=== PATIENT | male | born 1995 | race African-American/Black ===

== ENCOUNTER 2017-12-20 09:03 | Emergency (ER) | payer OTHER ==
[2017-12-20] MEDS ORDERED: Aspirin 81 mg CHEW TAB* 81 MG TAB.CHEW PO ONE (09:59)
--- NOTE | 2017-12-20 10:30 | ED ---
HPI Chest Pain - HPI Summary HPI Summary: This patient is a 22 year old M [facility] by his mother with a chief complaint of constant, sharp, tense 3/10 CP for several months. Pt notes the sx could be worse today and in general because he is anxious about the sx and always aware of and acknowledging them. He notes the pain is wherever (his) heart is. He endorses possible palpitations, possibly secondary to anxiety. Pt denies aggravating factors. He endorses using his rescue inhaler (PMHx asthma) much more than usual. Pt endorses marijuana use, occasional alcohol use. He denies SOB, FHx of PE, DVT, and early-onset CAD. - History of Current Complaint Chief Complaint: EDChestPainROMI Time Seen by Provider: 12/20/17 10:21 Hx Obtained From: Patient Onset/Duration: Started Weeks Ago, Atraumatic, Still Present Timing: Constant Initial Severity: Mild Current Severity: Mild Pain Intensity: 3 Pain Scale Used: 0-10 Numeric Chest Pain Location: Discrete at: - "wherever my heart is" Chest Pain Radiates: No Character: Sharp/Stabbing, Skipped Beats Aggravating Factor(s): Other: - anxiety Alleviating Factor(s): Nothing Associated Signs and Symptoms: Positive: Chest Pain, Anxiety. Negative: Shortness of Breath, Fever - Allergy/Home Medications Allergies/Adverse Reactions: Allergies Allergy/AdvReac Type Severity Reaction Status Date / Time apple Allergy Itching Verified 12/20/17 09:35 fuentes Allergy Itching Verified 12/20/17 09:35 Latex, Natural Rubber Allergy Rash Verified 12/20/17 09:35 peach Allergy Itching Verified 12/20/17 09:35 peanut Allergy Anaphylatic Verified 12/20/17 09:35 Shock shellfish derived Allergy Itching Verified 12/20/17 09:35 soybean Allergy Itching Verified 12/20/17 09:35 Tree Nuts Allergy Anaphylatic Verified 12/20/17 09:35 Shock Home Medications: Home Medications Beclomethasone 40 MCG MDI(NF) [Qvar 40 MCG MDI(NF)] 2 puff INH BID 12/20/17 [ History Confirmed 12/20/17] PMH/Surg Hx/FS Hx/Imm Hx Endocrine/Hematology History: Denies: Hx Diabetes, Hx Thyroid Disease Cardiovascular History: Denies: Hx Hypertension, Hx Peripheral Vascular Disease Respiratory History: Reports: Hx Asthma Denies: Hx Chronic Obstructive Pulmonary Disease (COPD) GI History: Denies: Hx Ulcer Musculoskeletal History: Denies: Hx Arthritis, Hx Osteoporosis Sensory History: Denies: Hx Cataracts, Hx Contacts or Glasses, Hx Glaucoma, Hx Deafness Opthamlomology History: Denies: Hx Cataracts, Hx Contacts or Glasses, Hx Glaucoma EENT History: Denies: Hx Deafness Neurological History: Reports: Hx Headaches - frequent headaches Denies: Hx Seizures, Hx Transient Ischemic Attacks (TIA) Psychiatric History: Denies: Hx Anxiety, Hx Depression - Surgical History Surgery Procedure, Year, and Place: 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 Infectious Disease History: No Infectious Disease History: Denies: Hx Hepatitis, Hx Human Immunodeficiency Virus (HIV), Traveled Outside the [place] in Last 30 Days - Family History Known Family History: Negative: Cardiac Disease, Other - DVT, PE - Social History Occupation: Employed Part-time Lives: With Family Alcohol Use: None Substance Use Type: Reports: None Hx Tobacco Use: No Smoking Status (MU): Light Every Day Tobacco Smoker Review of Systems Negative: Fever Positive: Palpitations, Chest Pain Negative: Shortness Of Breath Positive: no symptoms reported Positive: Anxious All Other Systems Reviewed And Are Negative: Yes Physical Exam - Summary Physical Exam Summary: GENERAL: Patient is a well-developed and nourished M who is lying comfortable in the stretcher. Patient is not in any acute respiratory distress. HEAD AND FACE: Normocephalic EYES: PERRLA, EOMI x 2. EARS: Hearing grossly intact. MOUTH: Oropharynx within normal limits. NECK: Supple, trachea is midline, no adenopathy, no JVD, no carotid bruit. CHEST: Symmetric, no tenderness at palpation LUNGS: Clear to auscultation bilaterally. No wheezing or crackles. CVS: Regular rate and rhythm, S1 and S2 present, no murmurs or gallops appreciated. ABDOMEN: Soft, non-tender. Bowel sounds are normal. No abdominal abnormal pulsations. EXTREMITIES: Full ROM in all major joints, no edema, no cyanosis or clubbing. NEURO: Alert and oriented x 3. No acute neurological deficits. Speech is normal and follows commands. SKIN: Dry and warm Triage Information Reviewed: Yes Vital Signs On Initial Exam: Initial Vitals Temp Pulse Resp BP Pulse Ox 98.0 F 65 14 125/63 98 12/20/17 09:29 12/20/17 09:29 12/20/17 09:29 12/20/17 09:29 12/20/17 09:29 Vital Signs Reviewed: Yes Diagnostics - Vital Signs Vital Signs Temp Pulse Resp BP Pulse Ox 12/20/17 09:29 98.0 F 65 14 125/63 98 - Laboratory Result Diagrams: 12/20/17 11:03 12/20/17 11:03 Lab Statement: Any lab studies that have been ordered have been reviewed, and results considered in the medical decision making process. - Radiology CXR Xray Interpretation: No Acute Changes Radiology Interpretation Completed By: Radiologist - No radiographic evidence for acute cardiopulmonary abnormality on this portable chest x-ray. Dr. Soria has reviewed this report. - EKG 0957 Cardiac Rate: NL - 68 EKG Rhythm: Sinus Rhythm Ectopy: None EKG Interpretation: minimal ST elevation V2, V3, most likely secondary to TANESHA EKG Comparison: No Significant Change - when compared to EKG on 11/21/16. Chest Pain Course/Dx - Course Course Of Treatment: A 22-year-old M presents to the ED with a CC of constant 3/ 10 CP for months. (+) sharp, "tense" chest pain, located "wherever my heart is. " He endorses anxiety and palpitations. (-) SOB more than baseline. PMHx asthma. He believes these sx could be secondary to anxiety about the sx, but as sx have been constant for so long, his concern is growing. A CXR is (-). An EKG reveals NSR 68, minimal ST elevation V2, V3, most likely secondary to TANESHA, similar to EKG from 11/21/16. In the ED course, pt was given ASA. Pt shows abnl mono%. 2 sets of troponin normal as well as d dimer. Results discussed with patient, he will follow up with cardiology. Return precaustions given - Diagnoses Provider Diagnoses: Chest pain Discharge - Sign-Out/Discharge Documenting (check all that apply): Patient Departure - discharge - Discharge Plan Condition: Stable Disposition: HOME Patient Education Materials: Chest Pain (ED) Referrals: Aisha Sanchez MD [Medical Doctor] - Additional Instructions: Please return to the emergency department for any new or worsening symptoms. Follow up with the jewelry designer (information provided) in 1-3 days. - Billing Disposition and Condition Condition: STABLE Disposition: Home - Attestation Statements Document Initiated by Rhea: Yes Documenting Scribe: Srinivas Soliman Provider For Whom Rhea is Documenting (Include Credential): Dr. Delvin Soria MD Scribe Attestation: ISrinivas, scribed for Dr. Delvin Soria MD on 12/23/17 at 0718. Scribe Documentation Reviewed: Yes Provider Attestation: The documentation as recorded by the Srinivas weaver accurately reflects the service I personally performed and the decisions made by me, Dr. Delvin Soria MD
--- NOTE | 2017-12-20 11:17 | RAD ---
INDICATION: Chest pain. COMPARISON: Most recent comparison chest x-rays dated January 04, 2017 TECHNIQUE: Single AP portable view of the chest was obtained. FINDINGS: Image quality is compromised due to the relative inferiority of a portable chest x-ray. The heart and mediastinum exhibit normal size and contour. The lungs are grossly clear. There is no evidence of a large pleural effusion. Visualized bones are normal for the patient's age. IMPRESSION: No radiographic evidence for acute cardiopulmonary abnormality on this portable chest x-ray.
[2017-12-20 11:28] LABS: INR 1.06 (0.77-1.02)
[2017-12-20 11:46] LABS: ABS Basophils 0.1 10^3/ul (0-0.2); ABS Eosinophils 0.3 10^3/ul (0-0.6); ABS Lymphocytes 1.7 10^3/ul (1.0-4.8); ABS Monocytes 0.5 10^3/ul (0-0.8); ABS Neutrophils 2.8 10^3/ul (1.5-7.7); ABS Nucleated RBC 0 10^3/ul; Eosinophil % 5.5 % (0-6); Hematocrit 44 % (42-52); Hemoglobin 15.3 g/dl (14.0-18.0); Lymphocyte % 31.5 % (25-47); Mean Corpuscular HGB Conc 35 g/dl (31-36); Mean Corpuscular Hemoglobin 32 pg (27-31); Mean Corpuscular Volume 90 fL (80-94); Mean Platelet Volume 7.8 um3 (7.4-10.4); Nucleated Red Blood Cells % 0.2; Platelet Count 235 10^3/ul (150-450); Red Blood Count 4.84 10^6/ul (4.00-5.40); Red Cell Distribution Width 13 % (10.5-15); White Blood Count 5.4 10^3/ul (3.5-10.8)
[2017-12-20 12:01] LABS: EGFR Non-African American 128.8 (>60)
[2017-12-20 12:03] LABS: Urine Appearance Clear; Urine Blood Negative (Negative); Urine Color Yellow; Urine Ketones Negative (Negative); Urine Protein Negative (Negative); Urine Urobilinogen Negative (Negative)
[2017-12-20 14:15] VITALS: BP 109/68
== END 2017-12-20 14:14 | disposition home or self-care (01) ==
LOC: ED 09:03
DX: R07.9 Chest pain, unspecified (principal); F41.9 Anxiety disorder, unspecified; R00.2 Palpitations; F17.210 Nicotine dependence, cigarettes, uncomplicated
CPT/HCPCS: 36415; 71045; 80053; 80307; 81003; 82550; 82553; 83605; 83735; 84436; 84443; 84484; 85025; 85379; 85610; 85730; 93005; 99282; A9270-GY

== ENCOUNTER 2019-06-11 14:38 | Emergency (ER) | payer OTHER ==
--- OUTSIDE RECORDS SUMMARY | 2019-06-11 14:47 | XMS REPORT | Continuity of Care Document ---
:1995 External Reference #:[id number] Author Name VICENTE Gould Address [address] [place] [address] Care Team Providers Name Role Phone Manuel Cabrera MD - Family Care Team Information [employer] Guid[employer] Counselor Medicine Problems Description No Information Available Social History Type Date Description Comments Sex Unknown Allergies, Adverse Reactions, Alerts Description No Known Drug Allergies Medications Active Medications SIG Qnty Indications Ordering Provider Date Bupropion HCL take 2 tablets 180tabs F34.1 Vijaya Rojo, 04/18/2019 75mg by mouth every LIVESTOCK PRODUCER Tablets day Lorazepam 1 by mouth twice 60tabs R11.2 Vijaya Rojo, 04/18/2019 0.5mg a day as needed [employer]ODUCER Tablets anxiety, nausea Proair HFA 2 puffs every 17gm Vijaya Rojo, 11/14/2018 4-6 hours as LIVESTOCK PRODUCER 108(90Base) mcg/Act needed Aerosol Immunizations Description No Information Available Vital Signs Date Vital Result Comment 04/18/2019 1:28pm BP Systolic 110 mmHg BP Diastolic 70 mmHg Heart Rate 98 /min Body Temperature 97.9 F Respiratory Rate 18 /min Weight 146.00 lb 11/14/2018 9:38am BP Systolic 108 mmHg BP Diastolic 58 mmHg Heart Rate 72 /min Body Temperature 98.1 F Respiratory Rate 16 /min Height 71 inches 5'11" Weight 153.00 lb BMI (Body Mass Index) 21.3 kg/m2 Results Test Acquired Date Facility Test Result H/L Range Note Ua - Micro (Fma) 04/18/2019 [facility] Appearance CLEAR (607)- - Color YELLOW Glucose, Urine (Fma/CMC/CTX) NEG Bilirubin NEG Ketones 40MG/DL SP Grav >=1.030 Blood SMALL PH 5.5 Protein NEG Urobil 0.2 Nitrite NEG Leukocytes (Fma/CMC/Centrex) NEG Hyaline - /Lpf Granular - /Lpf WBC (a,Centrex) 0-1 RBC 3-5 Mucus (Fma/CBC/Centrex) SM AMT /Lpf Epith - /Lpf Bacteria 1+ /Hpf Amorphous (Fma/CMC/Centrex) - /Lpf Crystals, Fluid (Fma/CMC/CTX) - Z#Comments <pending> CBC Manual Diff[facility] 04/18/2019 [facility] WBC 4.86 4.0-10.0 (607)- - RBC 5.17 3.93-6.0 Hemoglobin (Fma/CMC/CTX) 16.6 g/dL 12.0-17.0 Hematocrit (Fma/CMC/CTX) 45.2 % 35.0-50.0 Mean Corpuscular Vol 87.4 fL 80-95 Mean Corpuscular Hemoglobin 32.1 pg 25.6-32.2 Mean Corpuscular Hemo Concen 36.7 g/dL High 32.2-36.0 Platelets 154 10^3/ul Low 163-400 RDW 11.8 11.6-13.7 Mean Platelet Volume 10.2 fL 8.0-12.4 Neutrophil % <pending> % 34.0-70.0 Band Neutrophil <pending> % 1-7 Lymph% <pending> % 20.0-52.0 Monocytes % <pending> % 5.0-12.0 Eos % <pending> % 0.7-7.0 Basophil% <pending> % 0-1.2 Atypical Lymph <pending> Metamyelocytes <pending> Myelocytes <pending> Promyelocytes <pending> Blasts <pending> NRBC <pending> % 0-0.1 Macrocytosis <pending> Microcytosis (a/CMC/Centrex) <pending> Hypochrom <pending> Polychrom <pending> Anisocytosis (Fma/CMC/Centrex) <pending> Ovalocytes <pending> Elliptocyte <pending> Comment <pending> Laboratory test 04/18/2019 Rom[facility]) Free T4 <pending> 0.75- 1.54 finding TSH <pending> 0.5-5.0 Comprehensive Metabolic 11/14/2018 Rom[facility]) Sodium 137 mEq/L 134-149 Prof Potassium 4.3 mEq/L 3.6-5.5 Chloride 99 mEq/L 94-112 Carbon Dioxide 30 mEq/L 21-32 Glucose 100 mg/dL 70-105 BUN 10 mg/dL 6-26 Creatinine 0.7 mg/dL 0.6-1.4 BUN/Creat Ratio 14.3 CALC 8.0-36.0 Calcium 9.8 mg/dL 8.6-10.2 Total Protein 8.0 g/dL 6.4-8.3 Albumin 5.5 g/dL 3.8-5.5 Globulin 2.5 g/dL 2.0-4.8 A/G Ratio 2.2 CALC 0.6-2.3 Alk. Phosphatase 55 U/L 22-95 Alt (SGPT) 21 U/L 7-35 Ast (Sgot) 18 U/L 5-34 Total Bilirubin 1.2 mg/dL 0.2-1.3 GFR Non- >60 ml/min/1.73m^ >=60 GFR >60 ml/min/1.73m^ >=60 Laboratory test 11/14/2018 Rom[facility] Gary([facility]) Free T4 1.43 ng/dL 0.75- 1.54 finding TSH 2.12 mIU/L 0.50-6.00 CBC Electronic a 11/14/2018 Rom[facility]) WBC 6.1 x10^3/UL 4.0- 10.0 RBC 4.98 x10^6/UL 3.93-6.00 HGB 16.1 g/dL 12.0-17.0 HCT 46 % 35-50 MCV 91.6 fL 80.0-95.0 MCH 32.3 pg High 25.6-32.2 MCHC 35.3 g/dL 32.2-36.0 RDW-CV 12.7 % 11.6-14.4 PLT 268 x10^3/UL 163-400 MPV 10.0 fL 9.4-12.4 Juwan# 3.14 x10^3/UL 1.56-6.13 Lymph# 1.96 x10^3/UL 1.18-3.74 [place]# 0.69 x10^3/UL 0.24-0.82 Eos # 0.3 x10^3/UL 0.0-0.5 Baso # 0.03 x10^3/UL 0.01-0.08 Juwan% 51.3 % 34.0-70.0 Lymph % 32.0 % 20.0-52.0 [place]% 11.3 % 5.0-12.0 Eos% 4.9 % 0.7-7.0 Baso% 0.5 % 0.1-1.2 Procedures Date Code Description Status 11/14/2018 46043 Brief Emotional/Behav Assessment W/ Scoring Doc Per Completed Standard Inst Medical Devices Description No Information Available Encounters Type Date Location Provider Dx Diagnosis Office Visit 11/14/2018 Main Office Vijaya Rojo, F41.9 Anxiety disorder, 10:00a [facility] unspecified R63.4 Abnormal weight loss R10.84 Generalized abdominal pain F32.9 Major depressive disorder, single episode, unspecified Assessments Date Code Description Provider 04/18/2019 R63.4 Abnormal weight loss Vijaya Alia, [facility] 04/18/2019 R11.2 Nausea with vomiting, unspecified Vijaya Alia, [facility] 04/18/2019 R07.89 Other chest pain Vijaya Alia, [facility] 04/18/2019 R05 Cough Vijaya Alia, [facility] 04/18/2019 F34.1 Dysthymic disorder Vijaya Alia, [facility] 04/18/2019 F41.9 Anxiety disorder, unspecified Vijaya Alia, [facility] 11/14/2018 F41.9 Anxiety disorder, unspecified Vijaya Alia, [facility] 11/14/2018 R63.4 Abnormal weight loss Vijaya Alia, [facility] 11/14/2018 R10.84 Generalized abdominal pain Vijaya Alia, [facility] 11/14/2018 F32.9 Major depressive disorder, single episode, Vijayaeri Rojo, [facility] unspecified Plan of Treatment Future Appointment(s):05/03/2019 3:00 pm - VICENTE Gould at Main Utzcwx9804/18/2019 - Vijaya Rojo FNPR63.4 Abnormal weight lossR11.2 Nausea with vomiting, unspecifiedNew Medication:Lorazepam 0.5 mg - 1 by mouth twice a day as needed anxiety, nauseaComments:bland foods: mashed potato, bread, crackers, rice, banana, applesauce-- cold foods less likely to trigger lveokjF96.89 Other chest painR05 TbokzK98.1 Dysthymic disorderNew Medication: Bupropion HCL 75 mg - take 2 tablets by mouth every dayComments:Start with 75 mg (one pill) daily buproprion (generic for Wellbutrin-XL )I expect side effects , theyshould be mild/self-limiting, AND go away after a few weeks I want to see you in a few weeks, I planto keep a tight / short tether on you until we see improvement in your overall condition Any symptoms which worry you, call aofgapmwjgvX49.9 Anxiety disorder, unspecifiedAllComments:Medication Management Patient Understands medications he 's taking? Yes No Are there Barriers to Adherence? Yes No Has the patient been asked about herbal supplements and therapies, and[facility]? Yes No As always, we strongly encourage a healthy diet and making physical activity a part of your every day life. If you have questions about how or where to start, please contact the office. Functional Status Description No Information Available Mental Status Description No Information Available Referrals Description No Information Available
--- OUTSIDE RECORDS SUMMARY | 2019-06-11 14:47 | XMS REPORT | Continuity of Care Document ---
:1995 External Reference #:[id number] Author Name VICENTE Gould Address [address] [place] [address] Care Team Providers Name Role Phone Manuel Cabrera MD - Family Care Team Information Electrical Products Sales Engineer Medicine Problems Description No Information Available Social History Type Date Description Comments Sex Unknown Allergies, Adverse Reactions, Alerts Active Allergies Reaction Severity Comments Date NKDA 11/14/2018 Latex Itching 05/03/2019 Medications Active Medications SIG Qnty Indications Ordering Provider Date Bupropion HCL take 2 tablets 180tabs F34.1 Vijaya Rojo, 04/18/2019 75mg by mouth every [employer]OTOENGRAVING SK[employer] MAKER Tablets day Lorazepam 1 by mouth twice 60tabs R11.2 Vijaya Rojo, 04/18/2019 0.5mg a day as needed [employer]ENG[employer]ER Tablets anxiety, nausea Proair HFA 2 puffs every 17gm Vijaya Rojo, 11/14/2018 4-6 hours as PHOTOENGRAVING SKET[employer] MAKER 108(90Base) mcg/Act needed Aerosol Immunizations Description No Information Available Vital Signs Date Vital Result Comment 05/17/2019 2:16pm BP Systolic 98 mmHg BP Diastolic 58 mmHg Heart Rate 88 /min Body Temperature 97.1 F Respiratory Rate 14 /min Height 72 inches 6'0" Weight 155.00 lb BMI (Body Mass Index) 21.0 kg/m2 05/03/2019 3:17pm BP Systolic 88 mmHg BP Diastolic 64 mmHg Heart Rate 80 /min Body Temperature 99.3 F Height 72 inches 6'0" Weight 145.00 lb BMI (Body Mass Index) 19.7 kg/m2 Results Test Acquired Date Facility Test [...] (Fma/CMC/Centrex) - /Lpf Crystals, Fluid (Fma/CMC/CTX) - CBC Manual Diff-[facility] 04/18/2019 [facility] WBC 4.86 4.0-10.0 (607)- - RBC 5.17 3.93-6.0 Hemoglobin (Fma/CMC/CTX) 16.6 g/dL 12.0-17.0 Hematocrit (a/CMC/CTX) 45.2 % 35.0-50.0 Mean Corpuscular Vol 87.4 fL 80-95 Mean Corpuscular Hemoglobin 32.1 pg 25.6-32.2 Mean Corpuscular Hemo Concen 36.7 g/dL High 32.2-36.0 Platelets 154 10^3/ul Low 163-400 RDW 11.8 11.6-13.7 Mean Platelet Volume 10.2 fL 8.0-12.4 Neutrophil % 29 % Low 34.0-70.0 Band Neutrophil 12 % High 1-7 Lymph% 35 % 20.0-52.0 Monocytes % 12 % 5.0-12.0 Atypical Lymph 12 Comment plts low normal Comprehensive Metabolic 04/18/2019 [place]([facility]) Sodium 136 mEq/L 134-149 Prof Potassium 3.5 mEq/L Low 3.6-5.5 Chloride 95 mEq/L 94-112 Carbon Dioxide 29 mEq/L 21-32 Glucose 97 mg/dL 70-105 BUN 14 mg/dL 6-26 Creatinine 0.7 mg/dL 0.6-1.4 BUN/Creat Ratio 20.0 CALC 8.0-36.0 Calcium 9.7 mg/dL 8.6-10.2 Total Protein 7.8 g/dL 6.4-8.3 Albumin 5.0 g/dL 3.8-5.5 Globulin 2.8 g/dL 2.0-4.8 A/G Ratio 1.8 CALC 0.6-2.3 Alk. Phosphatase 62 U/L 22-95 Alt (SGPT) 22 U/L 7-35 Ast (Sgot) 25 U/L 5-34 Total Bilirubin 0.6 mg/dL 0.2-1.3 GFR Non- >60 ml/min/1.73m^ >=60 GFR >60 ml/min/1.73m^ >=60 Laboratory test 04/18/2019 [place] [facility]ma) Free T4 1.47 ng/dL 0.75- 1.54 finding TSH 1.11 mIU/L 0.50-6.00 Procedures Date Code Description Status 04/18/2019 87162 Brief Emotional/Behav Assessment W/ Scoring Doc Per Completed Standard Inst Medical Devices Description No Information Available Encounters Type Date Location Provider Dx Diagnosis Office Visit 05/03/2019 Main Office Vijaya Rojo, R63.4 Abnormal weight 3:00p [employer]ENGRA[employer]ING [employer] loss R11.2 Nausea with vomiting, unspecified F34.1 Dysthymic disorder F41.9 Anxiety disorder, unspecified Office Visit 04/18/2019 1:30p [facility] Vijaya R63.4 Abnormal weight Alia, [employer]ENG[employer] loss R11.2 Nausea with vomiting, unspecified R07.89 Other chest pain R05 Cough F34.1 Dysthymic disorder F41.9 Anxiety disorder, unspecified Assessments Date Code Description Provider 05/17/2019 R63.4 Abnormal weight loss Vijaya Alia, [facility] 05/17/2019 R11.2 Nausea with vomiting, unspecified Vijaya Alia, [facility] 05/17/2019 F34.1 Dysthymic disorder Vijaya Alia, [facility] 05/17/2019 F41.9 Anxiety disorder, unspecified Vijaya Alia, [facility] 05/17/2019 R07.89 Other chest pain Vijaya Alia, [facility] 05/17/2019 R05 Cough Vijaya Alia, [facility] 05/03/2019 R63.4 Abnormal weight loss Vijaya Alia, [facility] 05/03/2019 R11.2 Nausea with vomiting, unspecified Vijaya Alia, [facility] 05/03/2019 F34.1 Dysthymic disorder Vijaya Alia, [facility] 05/03/2019 F41.9 Anxiety disorder, unspecified Vijaya Alia, [facility] 04/18/2019 R63.4 Abnormal weight loss Vijaya Alia, [facility] 04/18/2019 R11.2 Nausea with vomiting, unspecified Vijaya Alia, [facility] 04/18/2019 R07.89 Other chest pain Vijaya Alia, [facility] 04/18/2019 R05 Cough Vijaya Alia, [facility] 04/18/2019 F34.1 Dysthymic disorder Vijaya Alia, [facility] 04/18/2019 F41.9 Anxiety disorder, unspecified Vijaya Alia, [employer] Plan of Treatment Future Appointment(s):06/28/2019 3:00 pm - VICENTE Gould at Main Jrggxc6205/17/2019 - Vijaya Alia, KHARIPR63.4 Abnormal weight lossR11.2 Nausea with vomiting, ykwrglrxamzW64.1 Dysthymic qhhhofgcL17.9 Anxiety disorder, ifyijmcpzrdR63.89 Other chest painR05 Cough Functional Status Description No Information Available Mental Status Description No Information Available Referrals Description No Information Available
--- OUTSIDE RECORDS SUMMARY | 2019-06-11 14:47 | XMS REPORT | Continuity of Care Document ---
:1995 External Reference #:[id number] Author Name Vijaya VICENTE Rojo Address [address] [place] [address] Care Team Providers Name Role Phone Manuel Cabrera MD - Family Care Team Information [employer] Medicine Problems Description No Information Available Social History Type Date Description Comments Sex Unknown Allergies, Adverse Reactions, Alerts Active Allergies Reaction Severity Comments Date NKDA 11/14/2018 Latex Itching 05/03/2019 Medications Active Medications SIG Qnty Indications Ordering Provider Date Bupropion HCL take 2 tablets 180tabs F34.1 Vijaya Rojo, 04/18/2019 75mg by mouth every [employer] Tablets day Lorazepam 1 by mouth twice 60tabs R11.2 Vijaya Rojo, 04/18/2019 0.5mg a day as needed [employer] Tablets anxiety, nausea Proair HFA 2 puffs every 17gm Vijaya Rojo, 11/14/2018 4-6 hours as [employer] 108(90Base) mcg/Act needed Aerosol Immunizations Description No Information Available Vital Signs Date Vital Result Comment 05/03/2019 3:17pm BP Systolic 88 mmHg BP Diastolic 64 mmHg Heart Rate 80 /min Body Temperature 99.3 F Height 72 inches 6'0" Weight 145.00 lb BMI (Body Mass Index) 19.7 kg/m2 04/18/2019 1:28pm BP Systolic 110 mmHg BP Diastolic 70 mmHg Heart Rate 98 /min Body Temperature 97.9 F Respiratory Rate 18 /min Weight 146.00 lb Results Test Acquired Date Facility Test Result [...] /Lpf Crystals, Fluid (Fma/CMC/CTX) - CBC Manual [facility] 04/18/2019 [facility] WBC 4.86 4.0-10.0 (607)- - RBC [...] plts low normal Comprehensive Metabolic 04/18/2019 [place] [facility]) Sodium 136 mEq/L 134-149 Prof Potassium 3.5 [...] GFR >60 ml/min/1.73m^ >=60 Laboratory test 04/18/2019 Rom[facility] Cookie(a) Free T4 1.47 ng/dL 0.75- 1.54 finding TSH 1.11 mIU/L 0.50-6.00 Comprehensive Metabolic 11/14/2018 Rom[facility] Cookie(a) Sodium 137 mEq/L 134-149 Prof Potassium 4.3 [...] >60 ml/min/1.73m^ >=60 Laboratory test 11/14/2018 Rom[facility] Cookie(a) Free T4 1.43 ng/dL 0.75- 1.54 finding TSH 2.12 mIU/L 0.50-6.00 CBC Electronic Fma 11/14/2018 Rom[facility] Cookie(a) WBC 6.1 x10^3/UL 4.0- 10.0 RBC 4.98 x10^6/UL 3.93-6.00 HGB 16.1 g/dL 12.0-17.0 HCT 46 % 35-50 MCV 91.6 fL 80.0-95.0 MCH 32.3 pg High 25.6-32.2 MCHC 35.3 g/dL 32.2-36.0 RDW-CV 12.7 % 11.6-14.4 PLT 268 x10^3/UL 163-400 MPV 10.0 fL 9.4-12.4 [place]# 3.14 x10^3/UL 1.56-6.13 Lymph# 1.96 x10^3/UL 1.18-3.74 [place]# 0.69 x10^3/UL 0.24-0.82 Eos # 0.3 x10^3/UL 0.0-0.5 Baso # 0.03 x10^3/UL 0.01-0.08 [place]% 51.3 % 34.0-70.0 Lymph % 32.0 % 20.0-52.0 [place]% 11.3 % 5.0-12.0 Eos% 4.9 % 0.7-7.0 Baso% 0.5 % 0.1-1.2 Procedures Date Code Description Status 04/18/2019 58344 Brief Emotional/Behav Assessment W/ Scoring Doc Per Completed [facility] 11/14/2018 35679 Brief Emotional/Behav Assessment W/ Scoring Doc Per Completed [facility] Medical Devices Description No Information Available Encounters Type Date Location Provider Dx Diagnosis Office Visit 04/18/2019 [facility] Vijaya Rojo, R63.4 Abnormal weight 1:30p [employer] loss R11.2 Nausea with vomiting, unspecified R07.89 Other chest pain R05 Cough F34.1 Dysthymic disorder F41.9 Anxiety disorder, unspecified Office Visit 11/14/2018 10:00a [facility] Vijaya F41.9 Anxiety disorder, Alia, [employer] unspecified R63.4 Abnormal weight loss R10.84 Generalized abdominal pain F32.9 Major depressive disorder, single episode, unspecified Assessments Date Code Description Provider 05/03/2019 R63.4 Abnormal weight loss Vijaya Rojo, [employer] 05/03/2019 R11.2 Nausea with vomiting, unspecified Vijaya Rojo, [employer] 05/03/2019 F34.1 Dysthymic disorder Vijaya Alia, [facility] 05/03/2019 F41.9 Anxiety disorder, unspecified Vijaya Alia, [facility] 04/18/2019 R63.4 Abnormal weight loss Vijaya Alia, [facility] 04/18/2019 R11.2 Nausea with vomiting, unspecified Vijaya Alia, [facility] 04/18/2019 R07.89 Other chest pain Vijaya Alia, [facility] 04/18/2019 R05 Cough Vijaya Alia, [facility] 04/18/2019 F34.1 Dysthymic disorder Vijaya Alia, [facility] 04/18/2019 F41.9 Anxiety disorder, unspecified Vijaya Alia, [facility] 11/14/2018 F41.9 Anxiety disorder, unspecified Vijaya Alia, [facility] 11/14/2018 R63.4 Abnormal weight loss Vijaya Alia, [facility] 11/14/2018 R10.84 Generalized abdominal pain Vijaya Alia, [facility] 11/14/2018 F32.9 Major depressive disorder, single episode, Vijaya Alia, [employer] unspecified Plan of Treatment Future Appointment(s):05/17/2019 2:30 pm - VICENTE [facility]05/03/2019 - Vijaya Alia, KHARIPR63.4 Abnormal weight lossFollow up:2 liubgX42.2 Nausea with vomiting, iickvuajycyQ00.1 Dysthymic nbxjkhpwB13.9 Anxiety disorder, unspecifiedAllComments:Medication Management Patient Understands medications he 's taking? Yes No Are there Barriers to Adherence? Yes No Has the patient been asked about herbal supplements and therapies, andOT meds? Yes No As always, we strongly encourage a healthy diet and making physical activity a part of your every day life. If you have questions about how or where to start, please contact the office. Functional Status Description No Information Available Mental Status Description No Information Available Referrals Description No Information Available
[2019-06-11 15:12] LABS: ABS Eosinophils 0.1 10^3/ul (0-0.6); ABS Lymphocytes 0.9 10^3/ul (1.0-4.8); ABS Monocytes 0.4 10^3/ul (0-0.8); ABS Neutrophils 7.5 10^3/ul (1.5-7.7); Eosinophil % 0.6 %; Hematocrit 44 % (42-52); Hemoglobin 15.3 g/dL (14.0-18.0); Lymphocyte % 10.6 %; Mean Corpuscular HGB Conc 35 g/dL (31-36); Mean Corpuscular Hemoglobin 32 pg (27-31); Mean Corpuscular Volume 92 fL (80-94); Mean Platelet Volume 8.2 fL (7.4-10.4); Platelet Count 238 10^3/uL (150-450); Red Blood Count 4.78 10^6 /uL (4.18-5.48); Red Cell Distribution Width 14 % (10-15)
[2019-06-11 15:31] LABS: ALT 13 U/L (7-52); AST 16 U/L (13-39); Albumin 4.8 g/dL (3.2-5.2); Albumin/Globulin Ratio 1.6 (1-3); Alkaline Phosphatase 57 U/L (34-104); Anion Gap 5 mmol/L (2-11); BUN/Creatinine Ratio 16.7 (8-20); Blood Urea Nitrogen 15 mg/dL (6-24); C Reactive Protein < 1.00 mg/L (<8.01); CO2 Carbon Dioxide 30 mmol/L (22-32); Calcium 10.1 mg/dL (8.6-10.3); Chloride 103 mmol/L (101-111); EGFR African American 127.7 (>60); EGFR Non-African American 105.5 (>60); Glucose 130 mg/dL (70-100); Potassium 3.5 mmol/L (3.5-5.0); Sodium 138 mmol/L (135-145); Total Protein 7.8 g/dL (6.4-8.9)
--- NOTE | 2019-06-11 15:41 | ED ---
Allergic Reaction/Systemic - HPI Summary HPI Summary: This patient is a 24-year-old male with a significant allergy history presenting to the ED after eating a banana with likely allergic reaction. Patient states immediately following eating a banana, he became violently ill, nausea, vomiting, abdominal pain, runny nose and shortness of breath. - History of Current Complaint Chief Complaint: EDAllergicReaction Time Seen by Provider: 06/11/19 14:40 Pain Intensity: 1 - Allergies/Home Medications Allergies/Adverse Reactions: Allergies Allergy/AdvReac Type Severity Reaction Status Date / Time banana Allergy Mild Hives Verified 06/11/19 14:48 apple Allergy Itching Verified 06/11/19 14:48 fuentes Allergy Itching Verified 06/11/19 14:48 Latex, Natural Rubber Allergy Rash Verified 06/11/19 14:48 peach Allergy Itching Verified 06/11/19 14:48 peanut Allergy Anaphylatic Verified 06/11/19 14:48 Shock shellfish derived Allergy Itching Verified 06/11/19 14:48 soybean Allergy Itching Verified 06/11/19 14:48 Tree Nuts Allergy Anaphylatic Verified 06/11/19 14:48 Shock Home Medications: Home Medications Albuterol HFA INHALER* [Ventolin HFA Inhaler*] 1 puff INH Q6H PRN 12/25/17 [ History Confirmed 06/11/19] EPINEPHrine [Epipen 2-[place]] 0.3 mg IM ONCE 12/25/17 [History Confirmed 06/11/19] LORazepam [Lorazepam] 1 tab PO BID 06/11/19 [History Confirmed 06/11/19] buPROPion TAB* [Wellbutrin TAB*] 1 tab PO DAILY 06/11/19 [History Confirmed 01/20] PMH/Surg Hx/FS Hx/Imm Hx Endocrine/Hematology History: Denies: Hx Diabetes, Hx Thyroid Disease Cardiovascular History: Denies: Hx Hypertension, Hx Peripheral Vascular Disease Respiratory History: Reports: Hx Asthma Denies: Hx Chronic Obstructive Pulmonary Disease (COPD) GI History: Denies: Hx Ulcer Musculoskeletal History: Denies: Hx Arthritis, Hx Osteoporosis Sensory History: Denies: Hx Cataracts, Hx Contacts or Glasses, Hx Glaucoma, Hx Deafness Opthamlomology History: Denies: Hx Cataracts, Hx Contacts or Glasses, Hx Glaucoma Neurological History: Reports: Hx Headaches - frequent headaches Denies: Hx Seizures, Hx Transient Ischemic Attacks (TIA) Psychiatric History: Denies: Hx Anxiety, Hx Depression - Surgical History Surgery Procedure, Year, and Place: 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 Infectious Disease History: No Infectious Disease History: Denies: Hx Hepatitis, Hx Human Immunodeficiency Virus (HIV), Traveled Outside the [place] in Last 30 Days - Family History Known Family History: Negative: Cardiac Disease, Other - DVT, PE - Social History Alcohol Use: None Substance Use Type: Reports: None Hx Tobacco Use: No Smoking Status (MU): Light Every Day Tobacco Smoker Physical Exam Vital Signs On Initial Exam: Initial Vitals Temp Pulse Resp BP Pulse Ox 0 F 89 12 124/83 100 06/11/19 14:42 06/11/19 14:42 06/11/19 14:42 06/11/19 14:42 06/11/19 14:42 Diagnostics - Vital Signs Vital Signs Temp Pulse Resp BP Pulse Ox 06/11/19 14:42 0 F 89 12 124/83 100 - Laboratory Lab Results: Lab Results 06/11/19 06/11/19 06/11/19 Range/Units 14:57 14:57 14:57 WBC 9.0 (3.5-10.8) 10^3/uL RBC 4.78 (4.18-5.48) 10^6 /uL Hgb 15.3 (14.0-18.0) g/dL Hct 44 (42-52) % MCV 92 (80-94) fL MCH 32 H (27-31) pg MCHC 35 (31-36) g/dL RDW 14 (10-15) % Plt Count 238 (150-450) 10^3/uL MPV 8.2 (7.4-10.4) fL Neut % (Auto) 84.1 % Lymph % (Auto) 10.6 % [place] % (Auto) 4.6 % Eos % (Auto) 0.6 % Baso % (Auto) 0.1 % Absolute Neuts (auto) 7.5 (1.5-7.7) 10^3/ul Absolute Lymphs (auto) 0.9 L (1.0-4.8) 10^3/ul Absolute Monos (auto) 0.4 (0-0.8) 10^3/ul Absolute Eos (auto) 0.1 (0-0.6) 10^3/ul Absolute Basos (auto) 0.0 (0-0.2) 10^3/ul Absolute Nucleated RBC 0.0 10^3/ul Nucleated RBC % 0.0 Sodium 138 (135-145) mmol/L Potassium 3.5 (3.5-5.0) mmol/L Chloride 103 (101-111) mmol/L Carbon Dioxide 30 (22-32) mmol/L Anion Gap 5 (2-11) mmol/L BUN 15 (6-24) mg/dL Creatinine 0.90 (0.67-1.17) mg/dL Est GFR ( Amer) 127.7 (>60) Est GFR (Non-Af Amer) 105.5 (>60) BUN/Creatinine Ratio 16.7 (8-20) Glucose 130 H (70-100) mg/dL Lactic Acid 1.4 (0.5-2.0) mmol/L Calcium 10.1 (8.6-10.3) mg/dL Total Bilirubin 0.90 (0.2-1.0) mg/dL AST 16 (13-39) U/L ALT 13 (7-52) U/L Alkaline Phosphatase 57 (34-104) U/L C-Reactive Protein < 1.00 (<8.01) mg/L Total Protein 7.8 (6.4-8.9) g/dL Albumin 4.8 (3.2-5.2) g/dL Globulin 3.0 (2-4) g/dL Albumin/Globulin Ratio 1.6 (1-3) Result Diagrams: 06/11/19 14:57 06/11/19 14:57 Lab Statement: Any lab studies that have been ordered have been reviewed, and results considered in the medical decision making process. Discharge ED - Discharge Plan Referrals: Vijaya Rojo NP [Primary Care Provider] -
[2019-06-11] MEDS ORDERED: diPHENhydraMINE PO* 25 MG PO ONE (16:45)
[2019-06-11 17:17] VITALS: BP 118/82
== END 2019-06-11 17:17 | disposition home or self-care (01) ==
LOC: ED 14:38
DX: T78.1XXA Other adverse food reactions, not elsewhere classified, initial encounter (principal); X58.XXXA Exposure to other specified factors, initial encounter; Z79.899 Other long term (current) drug therapy; J45.909 Unspecified asthma, uncomplicated; R51 Headache; F17.210 Nicotine dependence, cigarettes, uncomplicated
CPT/HCPCS: 36415; 80053; 83605; 85025; 86140; 93005; 99283; A9270-GY